=== PATIENT | female | born 2005 | race Hispanic/Latino ===

== ENCOUNTER 2024-07-24 16:39 | Emergency (ER) | payer OTHER ==
[~2024-07-24] VITALS: Ht 165.1 cm; Wt 61.9 kg
[2024-07-24 16:44] VITALS: BP 132/80; TEMP 97.9; O2SAT 98
[2024-07-24] MEDS: predniSONE 20 MG TAB PO ONE (19:35)
[2024-07-24] MEDS ORDERED: PRED20TA PO (19:35)
[2024-07-24] MEDS ORDERED: FLON1SPR NARES (19:36)
== END 2024-07-24 19:53 | disposition home or self-care (01) ==
LOC: M ED 16:39
DX: J01.90 Acute sinusitis, unspecified (principal); Z79.52 Long term (current) use of systemic steroids